=== PATIENT | male | born 1965 | race Caucasian/White ===

== ENCOUNTER → 2017-02-15 | Outpatient (CLI) | payer BC ==
[2017-02-15 08:38] LABS: ADD SCAN DIFF NO
[2017-02-15 08:41] LABS: BASOPHILS % 0.6 % (0.0-2.0); EOSINOPHILS # 0.2 10^3/ul (0.0-0.5); EOSINOPHILS % 2.4 % (0.0-7.0); HEMATOCRIT 45.3 % (42.0-52.0); HEMOGLOBIN 15.7 g/dl (14.0-18.0); LYMPHOCYTES # 2.4 10^3/ul (0.8-2.9); LYMPHOCYTES % 35.7 % (15.0-51.0); MEAN CORPUSCULAR HEMOGLOBIN 28.5 pg (29.0-33.0); MEAN CORPUSCULAR HGB CONC 34.7 g/dl (32.0-37.0); MEAN CORPUSCULAR VOLUME 82.2 fl (82.0-101.0); MEAN PLATELET VOLUME 10.5 fl (7.4-10.4); MONOCYTE # 0.5 10^3/ul (0.3-0.9); MONOCYTES % 8.2 % (0.0-11.0); NEUTROPHIL # 3.5 10^3/ul (1.6-7.5); NEUTROPHILS % 52.8 % (39.0-77.0); PLATELET COUNT 222 10^3/UL (140-415); RED BLOOD COUNT 5.51 10^6/ul (4.70-6.10); RED CELL DISTRIBUTION WIDTH 12.7 % (11.5-14.5); WHITE BLOOD COUNT 6.6 10^3/ul (4.8-10.8)
[2017-02-15 08:54] LABS: ALBUMIN 4.3 g/dl (3.3-4.9)
[2017-02-15 08:55] LABS: POTASSIUM 4.6 mmol/L (3.5-5.1)
[2017-02-15 08:56] LABS: CREATININE 0.9 mg/dl (0.61-1.24)
[2017-02-15 08:57] LABS: ALBUMIN/GLOBULIN RATIO 1.34; BILIRUBIN,INDIRECT 0.4 mg/dl (0-1.1); BILIRUBIN,TOTAL 0.4 mg/dl (0.2-1.3); TOTAL PROTEIN 7.5 g/dl (6.1-8.1)
[2017-02-15 08:58] LABS: CHOL/HDL RATIO 4.2 RATIO
--- NOTE | 2017-02-16 13:12 | RADRPT ---
PROCEDURE: XR right shoulder. CLINICAL INDICATION: Pain TECHNIQUE: AP, Internal and external rotation views of the right shoulder were performed. COMPARISON: None. FINDINGS: There is normal osseous mineralization and alignment. No acute fracture or osseous lesion is identified. There are normal joints without evidence of arthritis or dislocation. The soft tissues are unremarkable. RPTAT: AA IMPRESSION: Unremarkable right shoulder. Physician Alex Date Time Electronically viewed and signed by Juve Hsu Physician on 02/16/2017 13:11 RA/
--- NOTE | 2017-02-16 13:12 | RADRPT ---
PROCEDURE: XR Elbow. CLINICAL INDICATION: Pain TECHNIQUE: AP, lateral and oblique views of the right elbow performed. COMPARISON: None. FINDINGS: There is normal mineralization and alignment. No fracture or osseous lesion is identified. Spurring is noted at the coronoid process. The soft tissues are unremarkable. RPTAT: AA IMPRESSION: Mild degenerative changes without evidence of an acute fracture. Physician Alex Date Time Electronically viewed and signed by Juve Hsu Physician on 02/16/2017 13:12 RA/
== END | disposition home or self-care (01) ==
LOC: LAB 07:18
PROVIDERS: ATTEND Internal Medicine
DX: E11.9 Type 2 diabetes mellitus without complications (principal); E78.5 Hyperlipidemia, unspecified; M25.511 Pain in right shoulder; M25.522 Pain in left elbow
CPT/HCPCS: 80053; 80061; 83036; 85025

== ENCOUNTER → 2017-03-04 | Outpatient (CLI) | payer BC ==
[~2017-03-04] MED LIST: ASPI81TA3 PO; ATOR20TA65 PO; Accu-Chek XX; LANT3I SC; LOSA50TA2 PO; METF500T PO; NOVO3I SC
[2017-03-04 17:20] LABS: ADD SCAN DIFF NO
[2017-03-04 17:22] LABS: ADD UMIC YES; BASOPHILS % 0.4 % (0.0-2.0); EOSINOPHILS # 0.1 10^3/ul (0.0-0.5); EOSINOPHILS % 1.1 % (0.0-7.0); HEMATOCRIT 47.6 % (42.0-52.0); HEMOGLOBIN 16.5 g/dl (14.0-18.0); LYMPHOCYTES # 2.4 10^3/ul (0.8-2.9); LYMPHOCYTES % 28.6 % (15.0-51.0); MEAN CORPUSCULAR HEMOGLOBIN 28.7 pg (29.0-33.0); MEAN CORPUSCULAR HGB CONC 34.7 g/dl (32.0-37.0); MEAN CORPUSCULAR VOLUME 82.8 fl (82.0-101.0); MEAN PLATELET VOLUME 10.5 fl (7.4-10.4); MONOCYTE # 0.8 10^3/ul (0.3-0.9); NEUTROPHILS % 60.7 % (39.0-77.0); PLATELET COUNT 220 10^3/UL (140-415); RED BLOOD COUNT 5.75 10^6/ul (4.70-6.10); RED CELL DISTRIBUTION WIDTH 12.7 % (11.5-14.5); URINE BILIRUBIN (Dip) NEGATIVE (NEGATIVE); URINE BLOOD (Dip) TRACE (NEGATIVE); URINE COLOR LT. YELLOW (YELLOW); URINE GLUCOSE (Dip) >=1000 % (NEGATIVE); URINE KETONES (Dip) TRACE (NEGATIVE); URINE LEUKOCYTE ESTERASE (Dip) NEGATIVE (NEGATIVE); URINE NITRITE (Dip) NEGATIVE (NEGATIVE); URINE TOTAL PROTEIN (Dip) NEGATIVE (NEGATIVE); URINE UROBILINOGEN (Dip) 0.2 E.U./dL (0.1-1.0); WHITE BLOOD COUNT 8.3 10^3/ul (4.8-10.8)
[2017-03-04 17:44] LABS: SQUAMOUS EPITHELIAL CELL,UR RARE; URINE RBCS 0-2 /HPF (0)
[2017-03-04 18:11] LABS: ALBUMIN 4.4 g/dl (3.3-4.9); ALBUMIN/GLOBULIN RATIO 1.29; BILIRUBIN,INDIRECT 0.6 mg/dl (0-1.1); BILIRUBIN,TOTAL 0.6 mg/dl (0.2-1.3); CALCIUM 9.6 mg/dl (8.4-10.2); CREATININE 0.89 mg/dl (0.61-1.24); POTASSIUM 5.1 mmol/L (3.5-5.1); TOTAL PROTEIN 7.8 g/dl (6.1-8.1)
== END | disposition home or self-care (01) ==
LOC: LAB 16:50
PROVIDERS: ATTEND Internal Medicine
DX: R07.9 Chest pain, unspecified (principal); E78.1 Pure hyperglyceridemia
CPT/HCPCS: 80053; 81001; 81003; 82150; 83690; 84478; 85025

== ENCOUNTER 2017-03-05 13:34 | Inpatient (IN) | payer BC ==
[~2017-03-05] VITALS: Ht 172.7 cm; Wt 110.0 kg
[2017-03-05 16:20] VITALS: BP 143/85; PULSE 83; RESP 18; Ht 172.7 cm; Wt 110.0 kg
[2017-03-05] MEDS ORDERED: HYDROCODONE/APAP (5/325) TAB PO PRN (17:30)
[2017-03-05] MEDS ORDERED: morphine 4 MG/ML VIAL IV PRN (17:30)
[2017-03-05] MEDS ORDERED: DEXTROSE 50% 50 ML SYRINGE IV PRN ×2 (18:00)
[2017-03-05] MEDS ORDERED: GLUCOSE GEL 15 GRAM TUBE PO PRN ×2 (18:00)
[2017-03-05] MEDS ORDERED: GLUCAGON 1 MG INJ IM PRN (18:00)
[2017-03-05] MEDS ORDERED: GLUCOSE GEL 15 GRAM TUBE BUCCAL PRN (18:00)
[2017-03-05] MEDS: INSULIN ASPART [NOVOLOG] 3 ML PEN SC SCH ×2 (18:09→21:00)
[2017-03-05] MEDS: SOD CHLORIDE 0.45% 1,000 ML IV SCH (18:10)
[2017-03-05] MEDS ORDERED: BARIUM SULF 2% 450 ML BTL (BERRY SMOOTHIE) PO ONE (18:30)
[2017-03-05 19:04] LABS: ADD SCAN DIFF NO
[2017-03-05 19:14] LABS: BASOPHILS % 0.4 % (0.0-2.0); EOSINOPHILS # 0.2 10^3/ul (0.0-0.5); EOSINOPHILS % 2.2 % (0.0-7.0); HEMATOCRIT 45.5 % (42.0-52.0); HEMOGLOBIN 15.9 g/dl (14.0-18.0); LYMPHOCYTES # 2.7 10^3/ul (0.8-2.9); LYMPHOCYTES % 37.4 % (15.0-51.0); MEAN CORPUSCULAR HEMOGLOBIN 29.1 pg (29.0-33.0); MEAN CORPUSCULAR HGB CONC 34.9 g/dl (32.0-37.0); MEAN CORPUSCULAR VOLUME 83.3 fl (82.0-101.0); MEAN PLATELET VOLUME 10.6 fl (7.4-10.4); MONOCYTE # 0.6 10^3/ul (0.3-0.9); MONOCYTES % 7.9 % (0.0-11.0); NEUTROPHIL # 3.8 10^3/ul (1.6-7.5); PLATELET COUNT 239 10^3/UL (140-415); RED BLOOD COUNT 5.46 10^6/ul (4.70-6.10); RED CELL DISTRIBUTION WIDTH 12.6 % (11.5-14.5); WHITE BLOOD COUNT 7.3 10^3/ul (4.8-10.8)
[2017-03-05 19:28] LABS: ALBUMIN 4.3 g/dl (3.3-4.9)
[2017-03-05 19:29] LABS: POTASSIUM 4.3 mmol/L (3.5-5.1)
[2017-03-05 19:31] LABS: ALBUMIN/GLOBULIN RATIO 1.26; BILIRUBIN,INDIRECT 0.3 mg/dl (0-1.1); BILIRUBIN,TOTAL 0.3 mg/dl (0.2-1.3); CALCIUM 9.5 mg/dl (8.4-10.2); CREATININE 0.91 mg/dl (0.61-1.24); TOTAL PROTEIN 7.7 g/dl (6.1-8.1)
[2017-03-05 19:32] VITALS: BP 141/74; RESP 20
[2017-03-05 19:55] LABS: ADD UMIC YES; URINE BILIRUBIN (Dip) NEGATIVE (NEGATIVE); URINE BLOOD (Dip) TRACE (NEGATIVE); URINE COLOR LT. YELLOW (YELLOW); URINE GLUCOSE (Dip) >=1000 % (NEGATIVE); URINE KETONES (Dip) TRACE (NEGATIVE); URINE LEUKOCYTE ESTERASE (Dip) NEGATIVE (NEGATIVE); URINE NITRITE (Dip) NEGATIVE (NEGATIVE); URINE TOTAL PROTEIN (Dip) NEGATIVE (NEGATIVE); URINE UROBILINOGEN (Dip) 1.0 E.U./dL (0.1-1.0)
[2017-03-05 20:23] LABS: SQUAMOUS EPITHELIAL CELL,UR RARE; URINE RBCS 0-2 /HPF (0)
[2017-03-05] MEDS: ATORVASTATIN 20 MG TAB PO SCH (21:00)
[2017-03-05] MEDS: CEFOTAXIME 1 GM/50 ML (PMX) 50 ML IVPB SCH (21:01)
[2017-03-05] MEDS ORDERED: INSULIN ASPART [NOVOLOG] 3 ML PEN SC STA (21:43)
[2017-03-05] MEDS: ZOLPIDEM 5 MG TAB PO PRN (21:48)
[2017-03-06] MEDS ORDERED: ACCU-CHEK XX SCH (02:00)
--- NOTE | 2017-03-06 02:33 | HP ---
DATE OF ADMISSION: 03/05/2017 CHIEF COMPLAINT AND HISTORY OF PRESENT ILLNESS: The patient is a 51-year-old gentleman who is well known to me over the past 3 years with history of metabolic syndrome with blood glucose levels well controlled on metformin 500 mg p.o. b.i.d., losartan 50 mg p.o. daily, simvastatin 40 mg p.o. daily, aspirin 81 mg p.o. daily. He presents with severe recurrent lower abdominal pain with some nausea and some low grade fevers for the past 2 days. He was seen in my office with blood sugars in the 40 0s and was directly admitted for evaluation and treatment of severe hypoglycemia and also possibilit y of urinary tract infection and nephrolithiasis and the acute abdominal pain. The patient has not gained weight recently and he has been trying to lose weight. As mentioned earlier, his blood gluco se levels were stable. In August of 2016, his fasting glucose was 114 and A1c was 6.4. REVIEW OF SYSTEMS: HEAD: No history of headaches. No focal weakness or numbness. EYES: No blurry vision or glaucoma. ENT: Noncontributory. NECK: No history of thyroid disease. CHEST: No bronchitis, hay fever, or asthma. The patient does not smoke. CARDIOVASCULAR: No PND, orthopnea, palpitations, shortness of breath. GASTROINTESTINAL: No constipation, diarrhea, change in bowel. History of diarrhea 2 days ago. No history of GI bleeds. The patient has been advised to have a colonoscopy and he has not had a colon oscopy at this time. GENITOURINARY: The patient denies any dysuria, no prior history of kidney stones. FAMILY HISTORY: Positive for diabetes mellitus type 2 in both parents. He is the only child. ALLERGIES: NO KNOWN ALLERGIES. PAST MEDICAL HISTORY: He was last hospitalized in February 2013 for left foot strain. PHYSICAL EXAMINATION: GENERAL: The patient is an average-built male who is very pleasant. VITAL SIGNS: Temperature 98.2, blood pressure 142/85, O2 sats 100% on room air. HEENT: Head normocephalic. No pallor, cyanosis, or icterus. Tongue is moist. NECK: Supple. No thyromegaly, bruits or lymphadenopathy. LUNGS: Clinically clear. HEART: S1, S2 heard with no definite gallops. ABDOMEN: Obese, mild lower abdominal tenderness without rebound. RECTAL: Deferred due to patient's discomfort. EXTREMITIES: No edema. Homans sign is negative. Dorsalis pedis pulsations 2+ bilaterally. Homans sign is negative. NEUROLOGIC: No localizing or lateralizing signs. LABORATORY AND DIAGNOSTIC DATA: Initial WBC count 7.3, hematocrit 45.5, platelet count 239,000. So dium 137, potassium 4.3, BUN 17, creatinine 0.91, glucose 335, alkaline phosphatase 102, AST 36, ALT 54. CT scan of the abdomen and pelvis ordered and is pending. IMPRESSION: 1. Diabetes mellitus type 2, uncontrolled. 2. Hematuria, possible nephrolithiasis. 3. Hypertension. 4. Metabolic syndrome. PLAN: Patient will be begun on insulin, NovoLog regimen, and will add Lantus tomorrow after assessi ng the basal needs. Empiric antibiotic therapy with Claforan and obtain a CT of the abdomen and pel vis. Will hold the metformin for now. Observe for any signs of sepsis and also for ketoacidosis. Dictated By: JAKUB PRECIADO MD, SR/KARI Conf#: [id number] DID#: [id number]
[2017-03-06] MEDS: SOD CHLORIDE 0.45% 1,000 ML IV SCH ×4 (04:00→17:19)
[2017-03-06 05:48] LABS: ADD SCAN DIFF NO
[2017-03-06 05:57] LABS: BASOPHILS % 0.5 % (0.0-2.0); EOSINOPHILS # 0.2 10^3/ul (0.0-0.5); EOSINOPHILS % 3.6 % (0.0-7.0); HEMATOCRIT 44.4 % (42.0-52.0); LYMPHOCYTES # 2.2 10^3/ul (0.8-2.9); LYMPHOCYTES % 38.4 % (15.0-51.0); MEAN CORPUSCULAR HEMOGLOBIN 28.8 pg (29.0-33.0); MEAN CORPUSCULAR HGB CONC 33.8 g/dl (32.0-37.0); MEAN CORPUSCULAR VOLUME 85.2 fl (82.0-101.0); MEAN PLATELET VOLUME 10.8 fl (7.4-10.4); MONOCYTE # 0.5 10^3/ul (0.3-0.9); NEUTROPHIL # 2.8 10^3/ul (1.6-7.5); NEUTROPHILS % 49.1 % (39.0-77.0); PLATELET COUNT 198 10^3/UL (140-415); RED BLOOD COUNT 5.21 10^6/ul (4.70-6.10); RED CELL DISTRIBUTION WIDTH 12.9 % (11.5-14.5); WHITE BLOOD COUNT 5.6 10^3/ul (4.8-10.8)
[2017-03-06 06:07] LABS: ALBUMIN 3.8 g/dl (3.3-4.9); ALBUMIN/GLOBULIN RATIO 1.26; BILIRUBIN,INDIRECT 0.6 mg/dl (0-1.1); BILIRUBIN,TOTAL 0.6 mg/dl (0.2-1.3); CALCIUM 9.1 mg/dl (8.4-10.2); CREATININE 0.84 mg/dl (0.61-1.24); POTASSIUM 4.4 mmol/L (3.5-5.1); TOTAL PROTEIN 6.8 g/dl (6.1-8.1)
[2017-03-06 07:46] VITALS: BP 138/79; RESP 16
[2017-03-06] MEDS: INSULIN ASPART [NOVOLOG] 3 ML PEN SC SCH ×4 (08:19→20:51)
[2017-03-06] MEDS: CEFOTAXIME 1 GM/50 ML (PMX) 50 ML IVPB SCH (09:05)
[2017-03-06] MEDS: LOSARTAN 50 MG TAB PO SCH (09:05)
[2017-03-06] MEDS: ASPIRIN 81 MG TAB PO SCH (09:05)
--- NOTE | 2017-03-06 09:53 | RADRPT ---
PROCEDURE: CT scan of the abdomen and pelvis without IV contrast. CLINICAL INDICATION: Evaluate for kidney stone. TECHNIQUE: Thin section axial, coronal and sagittal images were performed through the abdomen and pelvis without contrast. Radiation Dose: CTDI: 23.7 and DLP: 1508. One or more of the following dose reduction techniques were used: - Automated exposure control. - Adjustment of the mA and/or kV according to patient size. Use of iterative reconstruction technique. COMPARISON: Chest x-ray 11/28/2016 06:18 a.m. FINDINGS: Soft tissues: There is a scar along the right lower quadrant of the lower abdomen and upper pelvis. Lungs and pleural spaces: Normal. Heart: The heart is normal in size. No pericardial effusion is identified. The liver, common bile duct and gallbladder: Liver is enlarged. There is diffuse fatty infiltration of the liver. Liver measures 19.7 cm AP. The gallbladder and gallbladder wall are normal. Gastrointestinal: The stomach and small bowel loops are normal. There is thickening and stranding i n the sigmoid colon with scattered diverticula consistent with acute diverticulitis. No microperfor ation or diverticular abscess is identified. There is fecal material throughout most of the colon. There are diverticula in the distal descending colon. The vermiform appendix is not visualized wit h there are no secondary signs of appendicitis. There is a midline umbilical hernia. There are bila teral inguinal hernias containing fat. Pancreas: Normal. Kidneys, bladder and adrenal glands : The adrenal glands are normal. No obstructing ureterolith or nephrolith is identified. There is no evidence of a solid mass or hydronephrosis. Urinary bladder is normal. Spleen: The spleen is upper limits of normal for size measuring 12.6 cm. Lymph nodes: Normal. Reproductive system and pelvis : Normal. Bony elements: There are degenerative osteophytes in the thoracic and lumbar spine. Vasculature: There are vascular calcifications in the abdominal aorta and common iliac arteries. IMPRESSION: 1. Acute sigmoid diverticulitis without evidence of microperforation or of a diverticular abscess. 2. Diverticulosis of the descending colon. 3. The vermiform appendix is not visualized. Anterior right lower quadrant scar possibly from prior appendectomy. 4. Midline umbilical hernia measuring 2.8 cm AP with the neck of the hernia measuring 2.4 cm transv erse. There are bilateral inguinal hernias which contain only fat. RPTAT:AAJJ Edward Herr Physician Date Time Electronically viewed and signed by Edward Herr, Physician on 03/06/2017 09:53 MELECIO/
[2017-03-06] MEDS: CIPROFLOXACIN 400MG/D5W 200 ML IVPB SCH ×2 (12:08→20:44)
[2017-03-06] MEDS: metroNIDAZOLE 500 MG/NS (PMX) 100 ML IVPB SCH ×2 (13:16→22:25)
--- NOTE | 2017-03-06 15:16 | PN ---
DATE: 03/06/2017 SUBJECTIVE: Patient continues to have lower abdominal pain, both right and left lower quadrant, mil d nausea, no vomiting. VITAL SIGNS: Temperature 97.6, blood pressure 138/79, O2 sat 98% room air. HEENT: Head normocephalic. LUNGS: Clinically clear. HEART: S1, S2 with no definite gallops. ABDOMEN: Mildly distended. Right and left lower quadrant tenderness without rebound. EXTREMITIES: No edema. Homans sign is negative. LABORATORY DATA: WBC count 5.6, hematocrit 44.4, platelets 198,000. Sodium 137, potassium 4.4, BUN 15, creatinine 0.84, serum glucose 302 and 351 today. CAT scan of the abdomen and pelvis: 1. Shows acute sigmoid diverticulitis without evidence of micro perforation or abscess. 2. Diverticulosis of the descending colon, bilateral inguinal hernias and midline umbilical hernia. Gallbladder appears normal. Fatty infiltration of the liver noted. No pericardial effusions. IMPRESSION: 1. Diabetes mellitus type 2, uncontrolled secondary to acute diverticulitis. 2. Hypertension. 3. Metabolic syndrome. 4. Hematuria. So far no evidence of urinary tract infection. PLAN: Will add Lantus insulin for basal coverage, change the algorithm to moderate. The patient wi ll be instructed regarding the need for diet and it is important to have his involved as well a nd will request a dietitian consultation regarding same and diabetic education. Dictated By: JAKUB PRECIADO MD, SR/KARI Conf#: [id number] DID#: [id number]
[2017-03-06 19:28] VITALS: BP 112/63; RESP 18
[2017-03-06] MEDS ORDERED: INSULIN GLARGINE [LANtus] 3 ML PEN SC SCH (20:00)
[2017-03-06] MEDS: ATORVASTATIN 20 MG TAB PO SCH (20:43)
[2017-03-06] MEDS: ZOLPIDEM 5 MG TAB PO PRN (20:52)
[2017-03-07] MEDS: ACCU-CHEK XX SCH (01:49)
[2017-03-07] MEDS: SOD CHLORIDE 0.45% 1,000 ML IV SCH ×4 (05:00→17:53)
[2017-03-07] MEDS: metroNIDAZOLE 500 MG/NS (PMX) 100 ML IVPB SCH ×3 (05:31→22:50)
[2017-03-07 07:34] VITALS: BP 147/65; RESP 16
[2017-03-07] MEDS: ASPIRIN 81 MG TAB PO SCH (07:55)
[2017-03-07] MEDS: CIPROFLOXACIN 400MG/D5W 200 ML IVPB SCH ×2 (07:56→21:39)
[2017-03-07] MEDS: LOSARTAN 50 MG TAB PO SCH (07:56)
[2017-03-07] MEDS: INSULIN ASPART [NOVOLOG] 3 ML PEN SC SCH ×4 (08:07→21:47)
--- NOTE | 2017-03-07 19:09 | PN ---
DATE: 03/07/2017 SUBJECTIVE: The patient has mild lower abdominal pain. No nausea, vomiting. All movements normal. VITAL SIGNS: Temperature 97.7, blood pressure 147/65, O2 sat 98%. CHEST: Clinically clear. HEART: S1, S2 heard with no definite gallops. ABDOMEN: Soft. Mild left lower quadrant tenderness without rebound. EXTREMITIES: No edema. Homans sign is negative. LABORATORY DATA: Blood glucose levels 214, 239 and 330 this afternoon. IMPRESSION: 1. Acute diverticulitis. 2. Diabetes mellitus type 2, uncontrolled. 3. Hypertension. 4. Metabolic syndrome. 5. Hematuria, so far no evidence of urinary tract infection. PLAN: Will continue IV antibiotics, diabetic education, and increase Lantus insulin to [address] with visual educator who will have education with the family regarding diabetes. We will also arrange to get a glucometer and teach patient regarding self-insulin administration as we ll as blood glucose checking. Dictated By: JAKUB PRECIADO MD, SR/KARI Conf#: [id number] DID#: [id number]
[2017-03-07 19:23] VITALS: BP 133/68; RESP 18
[2017-03-07] MEDS: INSULIN GLARGINE [LANtus] 3 ML PEN SC SCH ×2 (20:00→21:41)
[2017-03-07] MEDS: ATORVASTATIN 20 MG TAB PO SCH (21:39)
[2017-03-07] MEDS: ZOLPIDEM 5 MG TAB PO PRN (21:43)
[2017-03-07] MEDS ORDERED: INSULIN ASPART [NOVOLOG] 3 ML PEN SC ONE (22:00)
[2017-03-08 02:00] VITALS: PULSE 69
[2017-03-08] MEDS: ACCU-CHEK XX SCH (02:28)
[2017-03-08 05:30] LABS: ADD SCAN DIFF NO
[2017-03-08] MEDS: SOD CHLORIDE 0.45% 1,000 ML IV SCH ×3 (05:30→20:47)
[2017-03-08] MEDS: metroNIDAZOLE 500 MG/NS (PMX) 100 ML IVPB SCH ×3 (05:31→21:58)
[2017-03-08 05:45] LABS: BASOPHILS % 0.4 % (0.0-2.0); EOSINOPHILS # 0.2 10^3/ul (0.0-0.5); EOSINOPHILS % 3.3 % (0.0-7.0); HEMATOCRIT 43.6 % (42.0-52.0); LYMPHOCYTES % 37.5 % (15.0-51.0); MEAN CORPUSCULAR HEMOGLOBIN 28.8 pg (29.0-33.0); MEAN CORPUSCULAR HGB CONC 34.4 g/dl (32.0-37.0); MEAN CORPUSCULAR VOLUME 83.7 fl (82.0-101.0); MEAN PLATELET VOLUME 10.5 fl (7.4-10.4); MONOCYTE # 0.5 10^3/ul (0.3-0.9); NEUTROPHIL # 2.5 10^3/ul (1.6-7.5); NEUTROPHILS % 48.4 % (39.0-77.0); PLATELET COUNT 223 10^3/UL (140-415); RED BLOOD COUNT 5.21 10^6/ul (4.70-6.10); RED CELL DISTRIBUTION WIDTH 12.5 % (11.5-14.5); WHITE BLOOD COUNT 5.2 10^3/ul (4.8-10.8)
[2017-03-08 06:09] LABS: POTASSIUM 4.4 mmol/L (3.5-5.1)
[2017-03-08 06:12] LABS: CREATININE 0.83 mg/dl (0.61-1.24)
[2017-03-08 06:13] LABS: MAGNESIUM 1.7 mg/dl (1.7-2.5)
[2017-03-08 07:38] VITALS: BP 129/73; RESP 16
[2017-03-08] MEDS: ASPIRIN 81 MG TAB PO SCH (08:16)
[2017-03-08] MEDS: LOSARTAN 50 MG TAB PO SCH (08:17)
[2017-03-08] MEDS: CIPROFLOXACIN 400MG/D5W 200 ML IVPB SCH ×2 (08:17→20:45)
[2017-03-08] MEDS: INSULIN ASPART [NOVOLOG] 3 ML PEN SC SCH ×4 (08:23→20:58)
[2017-03-08] MEDS ORDERED: MAGNESIUM SULFATE 2 GM/50 ML 50 ML IVPB ONE (18:00)
[2017-03-08] MEDS: ENOXAPARIN 30 MG/0.3 ML SYG SC SCH (18:39)
--- NOTE | 2017-03-08 18:47 | PN ---
DATE: SUBJECTIVE: The patient overall feels better. Decreasing abdominal pain. No nausea, vomiting. No fever or chills. PHYSICAL EXAMINATION: GENERAL: The patient is in no acute distress. VITAL SIGNS: Temperature 97.4, blood pressure 129/73, O2 sat 98%. CHEST: Clinically clear. ABDOMEN: Soft. Mild left lower quadrant tenderness without rebound. EXTREMITIES: No edema. Homans sign is negative. LABORATORY DATA: WBC count 5.2, hematocrit 43.6. Blood glucose levels 252, 222, 310. Magnesium 1. 7. IMPRESSION: 1. Acute diverticulitis. 2. Diabetes mellitus type 2, uncontrolled. 3. Hypertension. 4. Metabolic syndrome. 5. Hematuria. No evidence of urinary tract infection. Will increase Lantus insulin to 20 units. Diabetic education has been initiated. ____ glucometer a nd teach patient regarding self insulin administration as well as blood glucose checking. The patie nt has been advised suitably regarding the long-term complications of diabetes mellitus, the need to lose weight, and he understands. I have discussed with patient's as well and would involve araceli alejandrogary's as well in discussion with the patient regarding the diet. ADDENDUM: The patient has a low magnesium. Will replace magnesium. Increase activity and observe. Dictated By: JAKUB PRECIADO MD, SR/KARI Conf#: [id number] DID#: [id number]
[2017-03-08 19:49] VITALS: BP 132/83; PULSE 82
[2017-03-08] MEDS: ATORVASTATIN 20 MG TAB PO SCH (20:46)
[2017-03-08] MEDS: ZOLPIDEM 5 MG TAB PO PRN (20:50)
[2017-03-08] MEDS: INSULIN GLARGINE [LANtus] 3 ML PEN SC SCH (20:57)
[2017-03-09] MEDS: SOD CHLORIDE 0.45% 1,000 ML IV SCH ×2 (02:00→10:32)
[2017-03-09] MEDS: ACCU-CHEK XX SCH (02:15)
[2017-03-09] MEDS: metroNIDAZOLE 500 MG/NS (PMX) 100 ML IVPB SCH ×3 (05:57→22:01)
[2017-03-09 06:02] LABS: ADD SCAN DIFF NO
[2017-03-09 06:12] LABS: BASOPHILS % 0.5 % (0.0-2.0); EOSINOPHILS # 0.2 10^3/ul (0.0-0.5); HEMATOCRIT 43.4 % (42.0-52.0); LYMPHOCYTES # 2.3 10^3/ul (0.8-2.9); LYMPHOCYTES % 37.7 % (15.0-51.0); MEAN CORPUSCULAR HGB CONC 34.6 g/dl (32.0-37.0); MEAN CORPUSCULAR VOLUME 83.9 fl (82.0-101.0); MEAN PLATELET VOLUME 10.4 fl (7.4-10.4); MONOCYTE # 0.6 10^3/ul (0.3-0.9); MONOCYTES % 9.4 % (0.0-11.0); NEUTROPHIL # 2.9 10^3/ul (1.6-7.5); NEUTROPHILS % 49.1 % (39.0-77.0); PLATELET COUNT 234 10^3/UL (140-415); RED BLOOD COUNT 5.17 10^6/ul (4.70-6.10); RED CELL DISTRIBUTION WIDTH 12.8 % (11.5-14.5)
[2017-03-09 06:38] LABS: POTASSIUM 3.9 mmol/L (3.5-5.1)
[2017-03-09 06:41] LABS: CALCIUM 8.8 mg/dl (8.4-10.2); CREATININE 0.9 mg/dl (0.61-1.24)
[2017-03-09 06:42] LABS: CHOL/HDL RATIO 4.3 RATIO
[2017-03-09 07:39] VITALS: BP 110/56; RESP 20
[2017-03-09] MEDS: ASPIRIN 81 MG TAB PO SCH (08:09)
[2017-03-09] MEDS: LOSARTAN 50 MG TAB PO SCH (08:10)
[2017-03-09] MEDS: INSULIN ASPART [NOVOLOG] 3 ML PEN SC SCH ×4 (08:18→20:28)
[2017-03-09] MEDS: ENOXAPARIN 30 MG/0.3 ML SYG SC SCH (08:18)
[2017-03-09] MEDS: CIPROFLOXACIN 400MG/D5W 200 ML IVPB SCH ×2 (08:52→20:26)
--- NOTE | 2017-03-09 16:20 | PN ---
DATE: 03/09/2017 SUBJECTIVE: Minimal lower abdominal pain, no nausea, vomiting. VITAL SIGNS: Temperature 97.5, blood pressure 110/56, respiration 20 per minute, O2 sat is 97% on r oom air. HEENT: Head normocephalic. LUNGS: Clinically clear. HEART: S1, S2 with no definite gallops. ABDOMEN: Minimal left lower quadrant tenderness without rebound. EXTREMITIES: No edema. Homans sign is negative. NEUROLOGIC: No localizing or lateralizing signs. LABORATORY DATA: Sodium 130, potassium 3.9, BUN 10, creatinine 0.90, glucose 214, leukocytosis was around 255. IMPRESSION: 1. Diabetes mellitus type 2, uncontrolled since the patient had developed acute diverticulitis. 2. Hyperlipidemia. LDL is within range at 62. 3. Metabolic syndrome. 4. Diabetes mellitus type 2, being controlled. 5. Hypertension. 6. Hematuria, no evidence of urinary tract infection, no history of nephrolithiasis. PLAN: Will continue IV antibiotics for now. Increase Lantus to 25 units p.m. Diabetic education in cluding self-insulin administration as well as glucose checking in progress. The patient will be ar ranged with a glucometer and dietary instructions enforced. He will increase activity. Discontinue IV fluids and observe. Dictated By: JAKUB PRECIADO MD, SR/KARI Conf#: [id number] DID#: [id number]
[2017-03-09 19:40] VITALS: BP 141/77; RESP 18
[2017-03-09] MEDS: ATORVASTATIN 20 MG TAB PO SCH (20:26)
[2017-03-09] MEDS: INSULIN GLARGINE [LANtus] 3 ML PEN SC SCH (20:28)
[2017-03-09] MEDS ORDERED: MAGNESIUM HYDROXIDE 30ML CUP PO ONE (21:30)
[2017-03-09] MEDS: ZOLPIDEM 5 MG TAB PO PRN (22:01)
[2017-03-10] MEDS: ACCU-CHEK XX SCH (02:14)
[2017-03-10 06:13] LABS: ADD SCAN DIFF NO
[2017-03-10 06:14] LABS: BASOPHIL # 0.1 10^3/ul (0.0-0.1); BASOPHILS % 0.8 % (0.0-2.0); EOSINOPHILS # 0.2 10^3/ul (0.0-0.5); EOSINOPHILS % 2.6 % (0.0-7.0); HEMATOCRIT 44.9 % (42.0-52.0); HEMOGLOBIN 15.4 g/dl (14.0-18.0); LYMPHOCYTES # 2.2 10^3/ul (0.8-2.9); LYMPHOCYTES % 33.9 % (15.0-51.0); MEAN CORPUSCULAR HEMOGLOBIN 29.1 pg (29.0-33.0); MEAN CORPUSCULAR HGB CONC 34.3 g/dl (32.0-37.0); MEAN CORPUSCULAR VOLUME 84.7 fl (82.0-101.0); MEAN PLATELET VOLUME 10.3 fl (7.4-10.4); MONOCYTE # 0.6 10^3/ul (0.3-0.9); MONOCYTES % 9.4 % (0.0-11.0); NEUTROPHIL # 3.5 10^3/ul (1.6-7.5); PLATELET COUNT 236 10^3/UL (140-415); RED CELL DISTRIBUTION WIDTH 12.9 % (11.5-14.5); WHITE BLOOD COUNT 6.6 10^3/ul (4.8-10.8)
[2017-03-10 06:16] LABS: CALCIUM 9.1 mg/dl (8.4-10.2); CREATININE 0.9 mg/dl (0.61-1.24); POTASSIUM 4.2 mmol/L (3.5-5.1)
[2017-03-10] MEDS: metroNIDAZOLE 500 MG/NS (PMX) 100 ML IVPB SCH (06:37)
[2017-03-10 07:42] VITALS: BP 111/61; RESP 20
[2017-03-10] MEDS: CIPROFLOXACIN 400MG/D5W 200 ML IVPB SCH (08:05)
[2017-03-10] MEDS: LOSARTAN 50 MG TAB PO SCH (08:05)
[2017-03-10] MEDS: ASPIRIN 81 MG TAB PO SCH (08:05)
[2017-03-10] MEDS: INSULIN ASPART [NOVOLOG] 3 ML PEN SC SCH ×5 (08:08→21:00)
[2017-03-10] MEDS: ENOXAPARIN 30 MG/0.3 ML SYG SC SCH (08:08)
[2017-03-10] MEDS ORDERED: INSULIN ASPART [NOVOLOG] 3 ML PEN SC SCH (12:15)
--- NOTE | 2017-03-10 14:07 | PN ---
DATE: 03/10/2017 SUBJECTIVE: The patient has minimal abdominal discomfort, no nausea, vomiting. He did have a bowel movement yesterday after laxatives. Denies any chest pain or shortness of breath. PHYSICAL EXAMINATION: GENERAL: The patient is awake, alert. VITAL SIGNS: Temperature 98.5, blood pressure 111/61, O2 saturation is 100%. LUNGS: Clinically clear. ABDOMEN: Soft, nontender. No hepatosplenomegaly. EXTREMITIES: No edema. LABORATORY DATA: Blood glucose levels math and science instructor is 205, 174, 155 and 219. Potassium 4.2. IMPRESSION: 1. Acute diverticulitis, clinically improved. 2. Diabetes mellitus type 2, uncontrolled secondary to infection. 3. Hyperlipidemia. 4. Metabolic syndrome. 5. Hypertension. PLAN: We will increase Lantus insulin to 25 units and add mealtime insulin 5 units and restart metf ormin and closely follow the patient. If the patient is stable over the next 24 hours, consider dis charge tomorrow. The patient is being trained the use of a glucometer as well as insulin management . Dictated By: JAKUB PRECIADO MD, SR/KARI Conf#: [id number] DID#: [id number]
[2017-03-10] MEDS: metroNIDAZOLE 500 MG TAB PO SCH ×2 (14:43→21:01)
[2017-03-10] MEDS: CIPROFLOXACIN 500 MG TAB PO SCH (17:30)
[2017-03-10] MEDS: metFORMIN 500 MG TAB PO SCH (17:31)
[2017-03-10 19:31] VITALS: BP 109/58; RESP 18
[2017-03-10] MEDS ORDERED: INSULIN GLARGINE [LANtus] 3 ML PEN SC SCH ×2 (20:00)
[2017-03-10] MEDS: ATORVASTATIN 20 MG TAB PO SCH (21:01)
[2017-03-10] MEDS: ZOLPIDEM 5 MG TAB PO PRN (22:00)
[2017-03-11] MEDS: ACCU-CHEK XX SCH (02:00)
[2017-03-11] MEDS: CIPROFLOXACIN 500 MG TAB PO SCH (05:51)
[2017-03-11 07:34] VITALS: BP 126/69; RESP 18
[2017-03-11] MEDS: INSULIN ASPART [NOVOLOG] 3 ML PEN SC SCH ×6 (08:12→17:32)
[2017-03-11] MEDS: LOSARTAN 50 MG TAB PO SCH (08:20)
[2017-03-11] MEDS: metroNIDAZOLE 500 MG TAB PO SCH ×2 (08:20→12:03)
[2017-03-11] MEDS: metFORMIN 500 MG TAB PO SCH ×2 (08:20→17:28)
[2017-03-11] MEDS: ASPIRIN 81 MG TAB PO SCH (08:20)
[2017-03-11] MEDS: ENOXAPARIN 30 MG/0.3 ML SYG SC SCH (08:41)
--- NOTE | 2017-03-11 10:05 | PN ---
DATE: 03/11/2017 SUBJECTIVE: The patient overall feels well. No chest pain or shortness of breath, no abdominal jigna n, no nausea, vomiting. OBJECTIVE: VITAL SIGNS: Temperature 98.5, blood pressure 126/69, O2 sats 95% room air. LUNGS: Clinically clear. HEART: S1, S2 heard with no definite gallops. ABDOMEN: Soft, nontender. No definite organomegaly. EXTREMITIES: No edema. LABORATORY DATA: Blood glucose levels 155 last night and the same was 132. IMPRESSION: 1. Acute diverticulitis, resolved. 2. Diabetes mellitus type 2, uncontrolled secondary to recent infection, improved. 3. Metabolic syndrome. 4. Hyperlipidemia. 5. Hypertension. PLAN: We will need to ensure that patient is able to self-medicate the insulin. We will ensure the same and then discharge him later today. Dictated By: JAKUB PRECIADO MD, SR/KARI Conf#: [id number] DID#: [id number]
[2017-03-11] MEDS ORDERED: ATOR20TA65 PO (18:17)
[2017-03-11] MEDS ORDERED: NOVO3I SC (18:17)
[2017-03-11] MEDS ORDERED: METF500T PO (18:17)
[2017-03-11] MEDS ORDERED: LOSA50TA2 PO (18:17)
[2017-03-11] MEDS ORDERED: Accu-Chek XX (18:17)
[2017-03-11] MEDS ORDERED: ASPI81TA3 PO (18:17)
[2017-03-11] MEDS ORDERED: LANT3I SC (18:17)
--- NOTE | 2017-03-12 03:58 | DS ---
DATE OF ADMISSION: 03/05/2017 DATE OF DISCHARGE: 03/11/2017 FINAL DIAGNOSES: 1. Acute diverticulitis, resolved. 2. Diabetes mellitus type 2, uncontrolled secondary to diverticulitis, improved. 3. Metabolic syndrome. 4. Hyperlipidemia. 5. Hypertension. HOSPITAL COURSE: The patient is a 51-year-old gentleman well known to me over the past 3 years with history of metabolic syndrome with blood glucose levels well controlled on 1. Metformin 500 mg p.o. b.i.d. 2. Losartan 50 mg daily. 3. Simvastatin 40 mg p.o. daily. 4. Aspirin 81 mg p.o. daily. The patient presented with severe recurrent lower abdominal pain with some nausea and had been advis ed to go to the emergency room. He did not go to the ER and subsequently was seen in my office with the blood sugar in the 400s and was directly admitted for further evaluation. Also, positive urina ry tract infection. He was directly admitted to the medical floor. His blood glucose levels where in a good range with fasting glucose of 114 in August 2016. Hemoglobin A1c levels have been betwe en 5.8 to 6.4. PHYSICAL EXAMINATION: GENERAL: The patient was found to be an average built male, afebrile, mild lower abdominal tenderne ss without rebound. RECTAL: Deferred. EXTREMITIES: Negative. LABORATORY DATA: Initial BUN was 17, creatinine 0.91, glucose 235, alkaline phosphatase 102, AST 36 . HOSPITAL COURSE: The patient was begun on a regimen of NovoLog along with Lantus to be added the . Antibiotics, namely Claforan which was switched to Cipro and Flagyl. There was no elmira dence of ketoacidosis. CT scan of the abdomen and pelvis showed findings consistent with acute sigm oid diverticulitis without evidence of microperforation or abscess, diverticulosis of the descending colon, and umbilical hernia 2.8 cm noted. Lovenox was held in view of acute inflammation, the risk of bleeding. NovoLog algorithm was changed to moderate. Lantus was gradually increased. Metformi n was restarted at 1000 mg p.o. b.i.d. On 03/10/2017, mealtime insulin, 5 units, along with sliding scale was added as well. Blood glucose levels stabilized, and on 03/11/2017, it was 132, 155, and 124, and the patient was given diabetic education along with instructions to use self-insulin admini stration, and he was discharged home in much improved condition on 1. Atorvastatin 20 mg p.o. daily. 2. Losartan 50 mg p.o. daily. 3. Aspirin 81 mg p.o. daily. 4. Accu-Cheks a.c. and at bedtime. I will advise the patient regarding a sliding scale if necessary. 5. Insulin NovoLog 5 units with meals. 6. 25 units of Lantus in the evening. 7. Metformin 5000 mg p.o. b.i.d. with meals. The patient will be followed in my office over the course of next week. The patient had already been advised to follow with the ham curer to assess for any retinopath y, and he has had outpatient cardiac workup and also workup for peripheral vascular disease which wi ll be followed up as well. The patient has been also advised on the need to lose weight with underl andry metabolic syndrome to decrease the abdominal waist and closely monitor the lipid profile to anne marie p the LDL less than 100, close to 70. He has been advised to rest at home for about a week. He juli l also need outpatient colonoscopy. Dictated By: JAKUB PRECIADO MD, SR/KARI Conf#: [id number] DID#: [id number]
== END 2017-03-11 18:50 | disposition home or self-care (01) | DRG 392 ==
LOC: MS2 16:13
PROVIDERS: ADMIT Internal Medicine; ATTEND Internal Medicine
DX: K57.32 Diverticulitis of large intestine without perforation or abscess without bleeding (principal); E11.65 Type 2 diabetes mellitus with hyperglycemia; E88.81 Metabolic syndrome and other insulin resistance; I10 Essential (primary) hypertension; R31.9 Hematuria, unspecified; E78.5 Hyperlipidemia, unspecified; R10.32 Left lower quadrant pain; R10.31 Right lower quadrant pain; R11.0 Nausea; K57.30 Diverticulosis of large intestine without perforation or abscess without bleeding; Z79.4 Long term (current) use of insulin
CPT/HCPCS: 74176; 80048; 80053; 80061; 81001; 81003; 82962; 83036; 83735; 85025; 87086; J0698; J0744; J1650; J1815; J3475

== ENCOUNTER → 2018-02-03 | Outpatient (CLI) | END | disposition home or self-care (01) ==